=== PATIENT | female | born 1975 ===

== ENCOUNTER 2016-08-31 15:40 | Emergency (ER) | payer OTHER ==
[2016-08-31 16:44] VITALS: BP 115/79
--- NOTE | 2016-08-31 18:13 | RAD ---
INDICATION: Atraumatic left knee pain x1 day COMPARISON: None TECHNIQUE: 4 view radiograph of the left knee. FINDINGS: The visualized bones are well-corticated and properly aligned. The joint spaces are properly maintained. On the sunrise view of the left knee there is an osteophyte along the lateral margin of the patella and to a lesser extent and osteophyte along the lateral margin of the femoral condyle. There is no radiographic evidence of joint effusion. There is no acute fracture, dislocation or other focal bony abnormality. IMPRESSION: Mild degenerative changes as noted above. If the patient's symptoms persist, follow-up imaging is recommended.
--- NOTE | 2016-08-31 18:32 | UC ---
Knee Pain HPI - HPI Summary HPI Summary: RECURRING LEFT KNEE PAIN WORSE FOR LAST YEAR, WORSENING OVER LAST THREE DAYS. NO HISTORY OF INJURY. RELIEVED BY WARM PACK. NO REDNESS. NO FEVER. NO SWELLING. - History of Current Complaint Chief Complaint: UCLowerExtremity Stated Complaint: LFT KNEE PAIN Time Seen by Provider: 08/31/16 17:06 Hx Obtained From: Patient Hx Last Menstrual Period: May 2016 - w/ miscarriage end of July Onset/Duration: Gradual Onset, Lasting Weeks, Worse Since - THREE Severity Initially: Mild Severity Currently: Mild Character: Dull, Aching Aggravating Factor(s): Movement, Weight Bearing Alleviating Factor(s): Rest, Position Associated Signs And Symptoms: Negative: Swelling, Redness, Bruising, Fever, Weakness, Numbness, Tingling Able to Bear Weight: Yes Related History: Similar Episode/Dx as - LAST YEAR - Risk Factors Septic Arthritis Risk Factor: Negative - Allergies/Home Medications Allergies/Adverse Reactions: Allergies Allergy/AdvReac Type Severity Reaction Status Date / Time Codeine AdvReac Unknown Nausea And Verified 08/31/16 16:34 Vomiting Home Medications: Home Medications Ibuprofen TAB* [Motrin TAB* 600 MG] 600 mg PO Q6H PRN 08/31/16 [History Confirmed 08/31/16] Levothyroxine TAB* [Synthroid TAB*] 175 mcg PO DAILY 08/31/16 [History Confirmed 08/31/16] PMH/Surg Hx/FS Hx/Imm Hx Previously Healthy: Yes Endocrine History Of: Reports: Thyroid Disease - Surgical History Surgical History: Yes Surgery Procedure, Year, and Place: RIGHT ovary, appendectomy. GallBladder 2012. Gastric Bypass 2011 - Family History Known Family History: Negative: Diabetes - Social History Occupation: Employed Full-time Lives: With Family Alcohol Use: None Substance Use Type: None Smoking Status (MU): Never Smoked Tobacco Review of Systems Constitutional: Negative Skin: Negative Eyes: Negative ENT: Negative Respiratory: Negative Cardiovascular: Negative Gastrointestinal: Negative Genitourinary: Negative Motor: Negative Neurovascular: Negative Musculoskeletal: Arthralgia - LEFT KNEE, Myalgia Neurological: Negative Psychological: Negative All Other Systems Reviewed And Are Negative: Yes Physical Exam Triage Information Reviewed: Yes Appearance: Well-Appearing, No Pain Distress, Well-Nourished Vital Signs: Initial Vital Signs Temp 98.2 F 08/31/16 16:35 Pulse 80 05/26/17 16:35 Resp 16 08/31/16 16:35 BP 115/79 08/31/16 16:35 Pulse Ox 100 08/31/16 16:35 Vital Signs Reviewed: Yes Eye Exam: Normal ENT Exam: Normal ENT: Positive: Normal ENT inspection, Hearing grossly normal, TMs normal Dental Exam: Normal Neck exam: Normal Neck: Positive: Supple, Nontender, No Lymphadenopathy Respiratory Exam: Normal Respiratory: Positive: Chest non-tender, Lungs clear, Normal breath sounds, No respiratory distress, No accessory muscle use Cardiovascular Exam: Normal Cardiovascular: Positive: RRR, No Murmur, Pulses Normal Abdominal Exam: Normal Musculoskeletal: Positive: Strength Intact, ROM Intact, No Edema, Other: - MEDIAL KNEE PAIN WITH MCMURRAYS TEST LEFT KNEE Neurological Exam: Normal Psychological Exam: Normal Skin Exam: Normal Knee Pain Course/Dx - Differential Dx/Diagnosis Differential Diagnosis/HQI/PQRI: Sprain, Strain Provider Diagnoses: LEFT KNEE ARTHRITIS/ARTHRALGIA Discharge - Discharge Plan Condition: Stable Disposition: HOME Patient Education Materials: Knee Pain (ED), Arthritis (ED) Referrals: Kenji Mckeon MD [Medical Doctor] - Jessica Buchanan NP [Primary Care Provider] - Jimenez Kelly MD [Medical Doctor] -
== END 2016-08-31 18:50 | disposition home or self-care (01) ==
LOC: UCCORT 15:40
DX: M17.12 Unilateral primary osteoarthritis, left knee (principal); E07.9 Disorder of thyroid, unspecified; Z98.84 Bariatric surgery status; Z88.5 Allergy status to narcotic agent
CPT/HCPCS: 99211; G0463

== ENCOUNTER 2017-06-25 16:28 | Emergency (ER) | payer OTHER ==
[2017-06-25 17:09] VITALS: BP 113/79
--- NOTE | 2017-06-25 18:09 | UC ---
Head Injury HPI - HPI Summary HPI Summary: TRIPPED WHILE WALKING HER DOG 3 DAYS AGO. HIT HER RIGHT PROTESTANT ON THE SIDEWALK AND GOT A GOOSE EGG. THAT HAS RESOLVED BUT NOW PT HAS RIGHT UPPER EYELID SWELLING AND BRUISING. NO LOC. DENIES VISUAL DISTURBANCES BUT DOES HAVE INTERMITTENT NAUSEA, VERAS, PHOTOPHOBIA AND DIZZINESS. - History Of Current Complaint Chief Complaint: UCHeadInjury Stated Complaint: RIGHT EYE COMPLAINT Time Seen by Provider: 06/25/17 17:54 Hx Obtained From: Patient Hx Last Menstrual Period: 06/19/17 Onset/Duration: Sudden Onset, Lasting Days, Still Present Severity Currently: Moderate Severity Initially: Moderate Pain Intensity: 2 Pain Scale Used: 0-10 Numeric Character: Dull Aggravating Factor(s): Nothing Alleviating Factor(s): Nothing Associated Signs And Symptoms: Positive: Nausea. Negative: LOC (Time In Secs./ Mins/Hrs), Confusion, Memory Loss, Seizure, Epistaxis, Neck Pain, Vomiting - Allergies/Home Medications Allergies/Adverse Reactions: Allergies Allergy/AdvReac Type Severity Reaction Status Date / Time morphine Allergy Unknown NAUSEA AND Verified 06/25/17 16:58 VOMITING Home Medications: Home Medications Antidepressant DAILY 06/25/17 [History] Meloxicam 7.5 mg PO DAILY 06/25/17 [History Confirmed 06/25/17] Vitamin B Complex CAP* [B Complex CAP*] 1 cap PO DAILY 06/25/17 [History Confirmed 06/25/17] PMH/Surg Hx/FS Hx/Imm Hx Previously Healthy: Yes - Surgical History Surgical History: Yes Surgery Procedure, Year, and Place: RIGHT ovary, appendectomy. GallBladder 2012. Gastric Bypass 2011 - Family History Known Family History: Positive: Diabetes - Social History Alcohol Use: None Substance Use Type: None Smoking Status (MU): Former Smoker Type: Cigarettes When Did the Patient Quit Smoking/Using Tobacco: 2016 Review of Systems Constitutional: Negative Skin: Bruising Eyes: Photophobia, Other - RIGHT UPPER EYELID SWELLING Respiratory: Negative Cardiovascular: Negative Gastrointestinal: Nausea Neurological: Headache All Other Systems Reviewed And Are Negative: Yes Physical Exam Triage Information Reviewed: Yes Appearance: Well-Appearing, No Pain Distress, Well-Nourished Vital Signs: Initial Vital Signs Temp 100.1 F 06/25/17 17:00 Pulse 76 06/25/17 17:00 Resp 18 06/25/17 17:00 BP 113/79 06/25/17 17:00 Pulse Ox 99 06/25/17 17:00 Vital Signs Reviewed: Yes Eyes: Positive: Conjunctiva Clear ENT: Positive: Hearing grossly normal, Pharynx normal, TMs normal Neck: Positive: Supple, Nontender, No Lymphadenopathy Respiratory Exam: Normal Cardiovascular Exam: Normal Abdomen Description: Positive: Soft Musculoskeletal: Positive: No Edema Neurological: Positive: Alert, Other: - CN II-XII GROSSLY INTACT BILATERALLY. NEG PRONATOR DRIFT. NEGATIVE ROMBERG. FINGER TO NOSE INTACT BILATERALLY. HEEL TO RENEE INTACT BILATERALLY. HEEL TO TOE INTACT BILATERALLY. RAPID ALTERNATING MVMTS INTACT. 5/5 STRENGTH Psychological: Positive: Age Appropriate Behavior Skin: Positive: Other - SLIGHT BRUISING AND EDEMA RIGHT UPPER EYELID. TENDER TO PALPATION Diagnostics - Radiology CT HEAD W/O CONTRAST Xray Interpretation: No Acute Changes Radiology Interpretation Completed By: Radiologist Head Injury Course/Dx - Differential Dx/Diagnosis Provider Diagnoses: POST CONCUSSIVE SYNDROME Discharge - Sign-Out/Discharge Documenting (check all that apply): Discharge - Discharge Plan Condition: Stable Disposition: HOME Patient Education Materials: Black Eye (ED), Post Concussion Syndrome (ED) Referrals: Jessica Buchanan NP [Primary Care Provider] - If Needed Additional Instructions: CT HEAD TODAY UNREMARKABLE LIMIT SCREEN TIME AND AVOID ACTIVITIES THAT COULD RESULT IN ADDITIONAL HEAD INJURY. FOLLOW-UP WITH PCP IF SYMPTOMS ARE PERSISTENT AFTER 1 WEEK. GO TO THE ER WITHOUT FAIL IF YOU DEVELOP UNEQUAL PUPILS, VISUAL DISTURBANCE, GAIT INSTABILITY, SPEECH DIFFICULTY, NAUSEA/VOMITING, WORSENING HEADACHE, DIZZINESS, CONFUSION, WEAKNESS OR ANY OTHER CONCERNING SYMPTOMS. [facility] CONCUSSION [facility]NAGEMENT - Billing Disposition and Condition Condition: STABLE Disposition: HOME
--- NOTE | 2017-06-25 18:36 | RAD ---
HISTORY: Concussion, headache, dizziness COMPARISONS: None TECHNIQUE: Multiple contiguous axial CT scans were obtained of the head without intravenous contrast. FINDINGS: HEMORRHAGE/INFARCT: There is no hemorrhage or acute infarct. MASSES/SHIFT: There is no mass or shift. EXTRA-AXIAL SPACES: There are no extra-axial fluid collections. SULCI AND VENTRICLES: The sulci and ventricles are normal in size and position for the patient's stated age. CEREBRUM: There are no focal parenchymal abnormalities. BRAINSTEM: There are no focal parenchymal abnormalities. CEREBELLUM: There are no focal parenchymal abnormalities. VESSELS: The vessels are grossly normal. PARANASAL SINUSES: The paranasal sinuses are clear. ORBITS: The orbits are unremarkable. BONES AND SOFT TISSUE: No bone or soft tissue abnormalities are noted. OTHER: None IMPRESSION: NO ACUTE INTRACRANIAL PATHOLOGY.
== END 2017-06-25 19:08 | disposition home or self-care (01) ==
LOC: UCCORT 16:28
DX: F07.81 Postconcussional syndrome (principal); W01.0XXA Fall on same level from slipping, tripping and stumbling without subsequent striking against object, initial encounter; Y93.K1 Activity, walking an animal; Y92.9 Unspecified place or not applicable; Z88.1 Allergy status to other antibiotic agents; Z87.891 Personal history of nicotine dependence
CPT/HCPCS: 70450; 99211; G0463

== ENCOUNTER 2017-10-09 19:30 | Emergency (ER) | payer OTHER ==
[2017-10-09 19:52] VITALS: BP 126/78
--- NOTE | 2017-10-09 20:05 | UC ---
Ear Complaint HPI - HPI Summary HPI Summary: Patient complains of earaches bilaterally for about 1 week. Patient states she had similar ear pain a month ago that resolved on its own. - History of Current Complaint Chief Complaint: UCEar Stated Complaint: EAR PAIN Time Seen by Provider: 10/09/17 19:59 Hx Obtained From: Patient Hx Last Menstrual Period: 09/30/17 ?: No Onset/Duration: Gradual Onset, Lasting Weeks - 1, Still Present Pain Intensity: 2 Pain Scale Used: 0-10 Numeric Associated Signs/Symptoms: Positive: URI Symptoms Related History: Seasonal Allergies - Allergies/Home Medications Allergies/Adverse Reactions: Allergies Allergy/AdvReac Type Severity Reaction Status Date / Time codeine Allergy Nausea And Verified 10/09/17 19:53 Vomiting PMH/Surg Hx/FS Hx/Imm Hx Previously Healthy: No Endocrine History: Hypothyroidism - Surgical History Surgical History: Yes Surgery Procedure, Year, and Place: RIGHT ovary, appendectomy. GallBladder 2013. Gastric Bypass 2011 - Family History Known Family History: Positive: Diabetes - Social History Occupation: Employed Full-time Lives: With Family Alcohol Use: None Substance Use Type: None Smoking Status (MU): Former Smoker Type: Cigarettes When Did the Patient Quit Smoking/Using Tobacco: 2016 Review of Systems Constitutional: Negative Skin: Negative Eyes: Negative ENT: Ear Ache - bilateral Respiratory: Negative Cardiovascular: Negative Gastrointestinal: Negative Genitourinary: Negative Motor: Negative Neurovascular: Negative Musculoskeletal: Negative Neurological: Negative Psychological: Negative Is Patient Immunocompromised?: No All Other Systems Reviewed And Are Negative: Yes Physical Exam Triage Information Reviewed: Yes Appearance: Well-Appearing, No Pain Distress, Obese Vital Signs: Initial Vital Signs Temp 98.1 F 10/09/17 19:48 Pulse 80 10/09/17 19:48 Resp 16 10/09/17 19:48 BP 126/78 10/09/17 19:48 Pulse Ox 100 10/09/17 19:48 Vital Signs Reviewed: Yes Eye Exam: Normal Eyes: Positive: Conjunctiva Clear ENT Exam: Normal ENT: Positive: Normal ENT inspection, Hearing grossly normal, Pharynx normal, Nasal congestion, TMs normal, Uvula midline. Negative: Tonsillar swelling, Tonsillar exudate, Trismus, Muffled voice, Hoarse voice, Dental tenderness, Sinus tenderness Dental Exam: Normal Neck exam: Normal Neck: Positive: Supple, Nontender Respiratory Exam: Normal Respiratory: Positive: Chest non-tender, Lungs clear, Normal breath sounds, No respiratory distress, No accessory muscle use Cardiovascular Exam: Normal Cardiovascular: Positive: RRR, No Murmur, Pulses Normal, Brisk Capillary Refill Musculoskeletal Exam: Normal Musculoskeletal: Positive: Strength Intact, ROM Intact, No Edema Neurological Exam: Normal Neurological: Positive: Alert, Muscle Tone Normal Psychological Exam: Normal Skin Exam: Normal Ear Complaint Course/Dx - Course Course Of Treatment: Patient is going to really use Sudafed as that worked last month. Tylenol ibuprofen for pain start Flonase nasal spray follow up with PCP when necessary - Differential Dx/Diagnosis Provider Diagnoses: Eustachian tube dysfunction bilaterally Discharge - Sign-Out/Discharge Documenting (check all that apply): Discharge/Admit/Transfer - Discharge Plan Condition: Stable Disposition: HOME Prescriptions: Fluticasone NASAL SPRAY 50MCG* [Flonase NASAL SPRAY 50MCG*] 2 spray BOTH NARES DAILY #1 btl Patient Education Materials: Pseudoephedrine (By mouth), Fluticasone (Into the nose), Earache (ED), Warm Compress or Soak (ED) Referrals: Jessica Buchanan NP [Primary Care Provider] - If Needed - Billing Disposition and Condition Condition: STABLE Disposition: Home
== END 2017-10-09 20:10 | disposition home or self-care (01) ==
LOC: UCCORT 19:30
DX: H69.83 Other specified disorders of Eustachian tube, bilateral (principal); Z88.5 Allergy status to narcotic agent
CPT/HCPCS: 99212; G0463

== ENCOUNTER 2018-05-30 07:47 | Emergency (ER) | payer OTHER ==
[2018-05-30 08:01] VITALS: BP 127/77
--- NOTE | 2018-05-30 08:27 | UC ---
Lower Extremity/Ankle HPI - HPI Summary HPI Summary: Patient presents to urgent care for evaluation of pain in her right great toe. Patient states Saturday evening she was wearing her shoes and she kicked ice off the side of her car tire. Patient states she woke up morning with discomfort. Patient states today she had ongoing discomfort. Patient is worse when she is walking better at rest. Patient took Tylenol last night. Patient has not applied ice. Patient did not take any analgesia today. Patient states pain mostly with movement. No paresthesias. No erythema. No fevers or chills. No history of gout. Patient's medications reviewed this visit. Patient states she is not - History of Current Complaint Chief Complaint: UCLowerExtremity Stated Complaint: RT FOOT/BIG TOE INJURY Time Seen by Provider: 05/30/18 08:16 Hx Obtained From: Patient Hx Last Menstrual Period: ~05/18/18 Onset/Duration: Gradual Onset Severity Initially: Moderate Severity Currently: Moderate Pain Intensity: 7 Pain Scale Used: 0-10 Numeric - Allergies/Home Medications Allergies/Adverse Reactions: Allergies Allergy/AdvReac Type Severity Reaction Status Date / Time codeine AdvReac Nausea And Verified 05/30/18 07:56 Vomiting Home Medications: Home Medications Acetaminophen [Acetaminophen Extra Strength] 1,000 mg PO Q6H PRN 05/30/18 [ History Confirmed 05/30/18] Citalopram TAB* [CeleXA TAB*] 10 mg PO DAILY 05/30/18 [History Confirmed ] Levothyroxine TAB* [Synthroid TAB*] 175 mcg PO DAILY 05/30/18 [History Confirmed 05/30/18] PMH/Surg Hx/FS Hx/Imm Hx Previously Healthy: Yes - Surgical History Surgical History: Yes Surgery Procedure, Year, and Place: Gastric Bypass, 2011, [place]; Cholecystectomy, 1992, [place]; Appendectomy and Right Oopherectomy, 1989, [place] - Family History Known Family History: Positive: Diabetes, Non-Contributory - Social History Occupation: Employed Full-time Lives: With Family Alcohol Use: Rare Substance Use Type: None Smoking Status (MU): Former Smoker Type: Cigarettes Length of Time of Smoking/Using Tobacco: ~1/2 PPD x 25 Years When Did the Patient Quit Smoking/Using Tobacco: ~2016 Review of Systems All Other Systems Reviewed And Are Negative: Yes Constitutional: Positive: Negative Skin: Positive: Negative Musculoskeletal: Positive: Other: - right great toe/foot pain Is Patient Immunocompromised?: No Physical Exam - Summary Physical Exam Summary: Vital Signs Reviewed: Yes A+Ox3, no distress Eyes: Conjunctiva Clear ENT: Hearing grossly normal neck: supple Respiratory: Positive: No respiratory distress, No accessory muscle use Cardiovascular: skin color reflect adequate perfusion 2+ DP, PT CBT < 2 sec Musculoskeletal Exam: + flex.ext knee, ankle. toes + TTP base 1st MTP right foot no crepitus mild discomfort but no laxity lateral joint testing no edema Neurological: Positive: Alert, ambulatory without difficulty Psychological: Positive: Normal Response To Family Skin: Positive: no rash, no ecchymosis Triage Information Reviewed: Yes Vital Signs: Initial Vital Signs Temp 97.7 F 05/30/18 07:53 Pulse 86 05/30/18 07:53 Resp 18 05/30/18 07:53 BP 127/77 05/30/18 07:53 Pulse Ox 99 05/30/18 07:53 Lower Extremity Course/Dx - Course Course Of Treatment: Patient with discomfort at the base of her first metatarsal in her right foot after kicking ice off her car. Patient with discomfort with walking and movement. No erythema no warmth. No history of gout. Vital signs are stable. Patient with focal discomfort along the first MTP. No pain to gentle touch. Imaging negative for fracture mild soft tissue swelling. Discussed with patient care. Patient given a postop shoe that she states provided good comfort and support. Elevate. Motrin Tylenol. Patient declined crutches. Patient recommended follow up with PCP or sport medicine. Discussed with patient that different treatment related to gout - Differential Dx/Diagnosis Provider Diagnosis: Sprain of toe, great, right Discharge - Sign-Out/Discharge Documenting (check all that apply): Patient Departure All imaging exams completed and their final reports reviewed: Yes - Discharge Plan Condition: Stable Disposition: HOME Patient Education Materials: Foot Sprain (ED) Referrals: [facility] [Provider Group] (Okay to request the [place] office site when scheduling) Jessica Buchanan NP [Primary Care Provider] - Additional Instructions: - alternate ibuprofen (Advil, Motrin) 600mg and tylenol 1000mg every 3hours for pain. Take with food - apply ice (wrapped in a towel) 20 minutes at a time, 2-3 times a day - wear walking shoe for comfort and support -elevate your foot to help with swelling and pain - contact your doctor or the sports medicine office to schedule a follow-up appointment - Billing Disposition and Condition Condition: STABLE Disposition: Home
[2018-05-30] MEDS ORDERED: Ibuprofen TAB* 600 MG PO ONE (08:28)
== END 2018-05-30 08:52 | disposition home or self-care (01) ==
LOC: UCCORT 07:47
DX: S93.501A Unspecified sprain of right great toe, initial encounter (principal); Z87.891 Personal history of nicotine dependence; Z88.5 Allergy status to narcotic agent; W22.8XXA Striking against or struck by other objects, initial encounter; Y92.9 Unspecified place or not applicable
CPT/HCPCS: 99213; A9270-GY; G0463